=== PATIENT | female | born 1940 ===

== ENCOUNTER → 2024-04-25 10:24 | Outpatient (BNVA) | payer MEDICARE, SELFPAY | PROVIDERS: Family Provider Nurse Practitioner; PCP Nurse Practitioner Family; Visit Provider Nurse Practitioner Family | DX: I10 Essential (primary) hypertension (principal) | CPT/HCPCS: 80053; 80061; 84443; 85025 ==

== ENCOUNTER 2024-05-26 06:07 | Observation (INO) | payer MEDICARE, SELFPAY ==
[2024-05-26] VITALS (9 sets, daily range): BP systolic 119–196; BP diastolic 48–96; PULSE 61–84; RESP 16–20; TEMP 36.1–36.8; O2SAT 96–100; BMI 21.2
--- NOTE | 2024-05-26 06:16 | XRR_ITS ---
PROCEDURE INFORMATION: Exam: XR Chest Exam date and time: 05/26/2024 6:23 AM Age: 84 years old Clinical indication: Dyspnea; Additional info: Dyspnea/cough TECHNIQUE: Imaging protocol: Radiologic exam of the chest. Views: 1 view. COMPARISON: No prior chest imaging for comparison. FINDINGS: Lungs: No focal consolidation identified. Small granuloma versus pulmonary vessel on end superolateral to the right hilum. Pleural spaces: No significant pleural fluid. No pneumothorax detected. Heart/Mediastinum: Heart size within normal range. No pulmonary vascular congestion. Bones/joints: The bones appear osteopenic. XR/XR chest 1V portable [id number] IMPRESSION: No acute cardiopulmonary abnormality detected on AP portable chest radiograph.
--- NOTE | 2024-05-26 06:17 | CTR_ITS ---
PROCEDURE INFORMATION: Exam: CT Head Without Contrast Exam date and time: 05/26/2024 6:44 AM Age: 84 years old Clinical indication: Stroke-like symptoms; Altered mental status/memory loss; Additional info: AMS TECHNIQUE: Imaging protocol: Computed tomography of the head without contrast. Radiation optimization: All CT scans at this facility use at least one of these dose optimization techniques: automated exposure control; mA and/or kV adjustment per patient size (includes targeted exams where dose is matched to clinical indication); or iterative reconstruction. Other technique: STROKE PROTOCOL was implemented. COMPARISON: No relevant prior studies available. RADIATION DOSE METRICS: Total DLP (mGy-cm): 999.58 FINDINGS: Brain: No acute intracranial hemorrhage or mass effect. Mild age-related volume loss. Chronic appearing small-vessel ischemic changes are noted within both cerebral hemispheres. No subdural collections. Critical finding notification process initiated at 0654 hours CDT. Cerebral ventricles: Size within normal range for age. No midline shift. Paranasal sinuses: Visualized portions of paranasal sinuses are well aerated. Mastoid air cells: Visualized portions of mastoid sinuses are not opacified. Bones: Unremarkable. No acute fracture. Soft tissues: Other than as stated above, no obvious acute abnormality. CT/CT head wo con* [id number] IMPRESSION: No acute intracranial hemorrhage or mass effect. ASSESSMENT: ASPECTS ([place] Stroke Program Early CT Score) is 10.
--- NOTE | 2024-05-26 06:24 | ECG_ITS ---
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 Measurements Intervals [place] Rate: 74 P: 74 SC: 245 QRS: -36 QRSD: 86 T: 65 QT: 401 QTc: 446 Interpretive Statements SINUS RHYTHM WITH FIRST DEGREE AV BLOCK Possible right atrial enlargement LEFT AXIS DEVIATION [QRS AXIS < -30] LOW QRS VOLTAGE IN PRECORDIAL LEADS [QRS DEFLECTION < 1.0 mV IN CHEST LEADS] POSSIBLE RIGHT VENTRICULAR CONDUCTION DELAY [RSR (QR) IN V1/V2] No previous ECG available for comparison Electronically Signed On 05-26-2024 20:38:55 CDT by Real Villagran M.D. [id number]
--- NOTE | 2024-05-26 06:28 | ED_ITS ---
HPI - Altered Mental Status 2 General: Chief Complaint: Altered Mental Status Stated Complaint: confusion, disorientation Time Seen by Provider: 05/26/24 06:15 Source: patient and family Mode of arrival: ambulatory History of Present Illness: 84-year-old female presents to the [facility] room with a cousin who was nearby. This morning her cousin's son had gotten up to go to work and found the patient in their front yard. She lives about 12 miles away from them and had not seen her in approximately 1 week. She was confused and disoriented and said that her mother had told her to go over there and then had left. Both the patient and the family admit that the patient's mother several decades ago. Patient says her mother still lives with her. Family relates that the patient's daughter lives in [place]. She has had episodes in the past where she seemed significantly confused. Cousin at the bedside also states that they have noticed confusion and disorientation and seems to be getting progressively worse although never to this extent. Patient denies any recent illness. He denies any chest pain or discomfort. She has not recently had any fevers sweats or chills shortness of breath no dysuria urgency or frequency vomiting or diarrhea. There is a note from Dr. Gunn in the chart regarding visit for memory loss. MD complaint: altered mental status and confusion Onset (ago): unknown Consistency of symptoms: Getting Worse Associated symptoms: Reports auditory hallucinations and visual hallucinations Review of Systems 2 Const: Denies: fever(s) or chills Card: Denies: chest pain Resp: Denies: dyspnea GI: Denies: abdominal pain : Denies: dysuria, urinary frequency or urinary urgency Musc: Denies: neck pain or back pain Skin/Breast: Denies: rash Psych: Reports: visual hallucinations and auditory hallucinations PFSH ED 2 PFSH: Medical History Chronic kidney disease Hypertension Surgical History History of arthroscopic knee surgery 2004; bilateral meniscal repair Physical Exam 2 Const: COMMON NORMALS: no acute distress GENERAL APPEARANCE: cooperative and comfortable ORIENTATION/CONSCIOUSNESS: Yes awake HENMT: COMMON NORMALS: normocephalic, atraumatic and hearing grossly normal bilaterally HEAD & SCALP: normocephalic and atraumatic Resp: COMMON NORMALS: normal respiratory effort, No retractions, No use of accessory muscles and clear to auscultation bilaterally AUSCULTATION: clear to auscultation bilaterally Cardio: COMMON NORMALS: regular rate, regular rhythm and No murmurs present (Cardio) RATE: regular rate RHYTHM: regular rhythm GI: COMMON NORMALS: Soft to palpation and No hepatosplenomegaly present A USCULTATION: Yes normoactive bowel sounds PALPATION: Yes Soft to palpation, No Tenderness to palpation present (GI), No Guarding due to palpation present (GI) and Yes No hepatosplenomegaly present Extremity: COMMON NORMALS: normal to inspection, capillary refill normal, no clubbing, cyanosis or edema, no calf tenderness and no pedal edema Skin: COMMON NORMALS: no rashes or lesions noted GENERAL SKIN EXAM: no rashes or lesions noted Course 2 Vital Signs: Vital signs: Vital Signs Temperature 98 F 05/26/24 06:17 Pulse Rate 66 05/26/24 08:10 Respiratory Rate 18 05/26/24 06:17 Blood Pressure 169/96 05/26/24 08:10 Pulse Oximetry 100 05/26/24 08:10 Oxygen Delivery Me thod Room Air 05/26/24 08:10 MDM - Altered Mental Status Medical Decision Making Patient is found to have a scopolamine patch which was removed. The rest of her lab work looks normal she has no sign of stroke CT was negative I suspect it is a side effect of the scopolamine patch. She does have a mild cystitis but I do not think it is significant enough to cause the degree of confusion without causing leukocytosis or fever. Give her a dose of Rocephin in the emergency room will admit to the [facility] floor discussed with Dr. Martínez. Toxicology labs are pending to ensure there is no other underlying causes. Differential Diagnosis Likely altered mental status and delirium Medical Records I reviewed the patient's medical records. Lab Data I reviewed the patient's lab results. 05/26/24 06:23 05/26/24 06:23 Radiology Impressions Chest X-Ray 05/26/24 06:16 IMPRESSION: No acute cardiopulmonary abnormality detected on AP portable chest radiograph. Head CT 05/26/24 06:17 IMPRESSION: No acute intracranial hemorrhage or mass effect. ASSESSMENT: ASPECTS ([place] Stroke Program Early CT Score) is 10. ADDENDUM: 05/26/24 0700 Addendum: THIS REPORT CONTAINS FINDINGS THAT MAY BE CRITICAL TO PATIENT CARE. The findings were verbally communicated via telephone conference with DR. RM MERRILL at 6:56 AM CDT on 05/26/2024. The findings were acknowledged and understood. Laboratory Results WBC 8.79 10^3/uL (3.29-11.43) 05/26/24 06:23 RBC 4.85 10^6/uL (3.85-5.65) 05/26/24 06:23 Hgb 14.80 g/dL (11.27-16.99) 05/26/24 06:23 Hct 45.4 % (36-47) 05/26/24 06:23 MCV 93.6 fl (85-98) 05/26/24 06:23 MCH 30.5 pg (27-33) 05/26/24 06:23 MCHC 32.6 g/dL (30-55) 05/26/24 06:23 RDW 12.9 % (12.1-15.1) 05/26/24 06:23 Plt Count 307 10^3/cmm (157-399) 05/26/24 06:23 MPV 9.1 fL (7.4-10.4) 05/26/24 06:23 Neut % (Auto) 63.6 % 05/26/24 06:23 Lymph % (Auto) 26.4 % 05/26/24 06:23 [place] % (Auto) 6.1 % 05/26/24 06:23 Eos % (Auto) 2.3 % 05/26/24 06:23 Baso % (Auto) 1.3 % 05/26/24 06:23 Neut # (Auto) 5.59 10^3/uL (1.8-7.7) 05/26/24 06:23 Lymph # (Auto) 2.3 10^3/uL (0.8-4.8) 05/26/24 06:23 Trinity # (Auto) 0.5 10^3/uL (0.2-0.9) 05/26/24 06:23 Eos # (Auto) 0.2 10^3/uL (0.0-0.8) 05/26/24 06:23 Baso # (Auto) 0.1 10^3/uL (0.0-0.1) 05/26/24 06:23 Nucleated RBC % (auto) 0 % 05/26/24 06:23 Nucleated RBCs # 0.0 /100WBC 05/26/24 06:23 Sodium 139 mmol/L (136-145) 05/26/24 06:23 Potassium 3.9 mmol/L (3.5-5.1) 05/26/24 06:23 Chloride 100 mmol/L (98-107) 05/26/24 06:23 Carbon Dioxide 24 mmol/L (22-29) 05/26/24 06:23 Anion Gap 18.9 (5-19) 05/26/24 06:23 BUN 17 mg/dL (8-23) 05/26/24 06:23 Creatinine 1.1 mg/dL (0.5-0.9) H 05/26/24 06:23 GFR Calculation Not Reportable 05/26/24 06:23 Glucose 101 mg/dL (65-115) 05/26/24 06:23 Calculated Osmolality 290 mOsm/kg (285-295) 05/26/24 06:23 Lactic Acid 0.7 mmol/L (0.5-2.2) 05/26/24 06:23 Calcium 10.2 mg/dL (8.5-10.5) 05/26/24 06:23 Magnesium 2.3 mg/dL (1.7-2.3) 05/26/24 06:23 Total Bilirubin 0.5 mg/dL (0.15-1.2) 05/26/24 06:23 AST 25 U/L (0-32) 05/26/24 06:23 ALT 13 U/L (0-33) 05/26/24 06:23 Alkaline Phosphatase 105 U/L (35-105) 05/26/24 06:23 Ammonia 22 umol/L (11-51) 05/26/24 06:23 Creatine Kinase 169 U/L (26-192) 05/26/24 06:23 Troponin T Baseline 17 ng/L (0-10) H 05/26/24 06:23 Total Protein 7.7 g/dL (6.6-8.7) 05/26/24 06:23 Albumin 5.0 g/dL (3.5-5.2) 05/26/24 06:23 Globulin 2.7 g/dL (1.3-4.6) 05/26/24 06:23 Urine Color Yellow (Yellow) 05/26/24 07:30 Urine Appearance Slightly cloudy (CLEAR) 05/26/24 07:30 Urine pH 5 (5-7) 05/26/24 07:30 Ur Specific [place] 1.015 (1.005-1.030) 05/26/24 07:30 Urine Protein Neg (Negative) 05/26/24 07:30 Urine Glucose (UA) Norm (Normal) 05/26/24 07:30 Urine Ketones 1+ (Negative) H 05/26/24 07:30 Urine Blood Neg (Negative) 05/26/24 07:30 Urine Nitrate Negative (Negative) 05/26/24 07:30 Urine Bilirubin Neg (Negative) 05/26/24 07:30 Urine Urobilinogen Norm mg/dL (Negative) 05/26/24 07:30 Ur Leukocyte Esterase 2+ (Negative) H 05/26/24 07:30 Urine RBC 0-4 /hpf (0-2) H 05/26/24 07:30 Urine WBC 5-10 /hpf (0-5) H 05/26/24 07:30 Ur Squamous Epith Cells 0-4 /hpf (0-5) H 05/26/24 07:30 Amorphous Sediment Not Reportable 05/26/24 07:30 Urine Bacteria Trace /hpf (NONE) 05/26/24 07:30 Hyaline Casts 0-4 /lpf H 05/26/24 07:30 Urine Mucus 1+ /hpf 05/26/24 07:30 All radiology interpretation(s) finalized by discharge Discharge Plan Discharge Patient Disposition: Placed in Observation Clinical Impression: Altered mental status, Side effect of medication Coding Level of Care Code ED Public Defender for [place] NIH stroke score NIHSS Level Of Consciousness - 1a: 0 Level Of Consciousness Questions - 1b: Both Correct Level Of Consciousness Commands - 1c: Both Correct Best Gaze - 2: Normal Visual [place] - 3: No Visual Loss Facial Palsy - 4: Normal Motor Arm Right - 5: No Drift Motor Arm Left - 5: No Drift Motor Leg Right - 6: No Drift Motor Leg Left - 6: No Drift Limb Ataxia - 7: Absent Sensory - 8: Normal Best Language - 9: No Aphasia Dysarthia - 10: Normal Extinction And Inattention - 11: 0 Score Total Score: 0
[2024-05-26 06:29] LABS: Basophils # 0.1 10^3/uL (0.0-0.1); Basophils % 1.3 %; Eosinophils # 0.2 10^3/uL (0.0-0.8); Eosinophils % 2.3 %; Hematocrit 45.4 % (36-47); Lymphocytes # 2.3 10^3/uL (0.8-4.8); Lymphocytes % 26.4 %; Mean Corpuscular HGB Conc 32.6 g/dL (30-55); Mean Corpuscular Hemoglobin 30.5 pg (27-33); Mean Corpuscular Volume 93.6 fl (85-98); Mean Platelet Volume 9.1 fL (7.4-10.4); Monocytes # 0.5 10^3/uL (0.2-0.9); Monocytes % 6.1 %; Neutrophils # 5.59 10^3/uL (1.8-7.7); Neutrophils % 63.6 %; Nucleated Red Blood Cells % 0 %; Platelet Count 307 10^3/cmm (157-399); Red Blood Count 4.85 10^6/uL (3.85-5.65); Red Cell Distribution Width 12.9 % (12.1-15.1); White Blood Count 8.79 10^3/uL (3.29-11.43)
[2024-05-26 06:55] LABS: Troponin(5th) Baseline 17 ng/L (0-10)
[2024-05-26 06:57] LABS: Alanine Aminotransferase 13 U/L (0-33); Alkaline Phosphatase 105 U/L (35-105); Anion Gap 18.9 (5-19); Aspartate Amino Transferase 25 U/L (0-32); Blood Urea Nitrogen 17 mg/dL (8-23); Calcium 10.2 mg/dL (8.5-10.5); Carbon Dioxide 24 mmol/L (22-29); Chloride 100 mmol/L (98-107); Creatine Phosphokinase 169 U/L (26-192); Globulin 2.7 g/dL (1.3-4.6); Glucose 101 mg/dL (65-115); Lactic Sepsis W/Reflex 0.7 mmol/L (0.5-2.2); Magnesium 2.3 mg/dL (1.7-2.3); Osmolality Calculated 290 mOsm/kg (285-295); Potassium 3.9 mmol/L (3.5-5.1); Sodium 139 mmol/L (136-145); Total Bilirubin 0.5 mg/dL (0.15-1.2); Total Protein 7.7 g/dL (6.6-8.7)
[2024-05-26 07:09] LABS: Ammonia 22 umol/L (11-51)
--- NOTE | 2024-05-26 08:06 | PC.NURSE ---
DURING ROUNDING ON PATIENT, FAMILY NOTIFIED THIS NURSE THAT PATIENT HAD A SCOPOLAMINE PATCH BEHIND RIGHT EAR. THIS NURSE REMOVED PATCH. PHYSICIAN NOTIFIED.
--- NOTE | 2024-05-26 08:15 | PC.PHAR ---
PT HAD TRANSDERM SCOPE ON MED LIST-LAST FILL 04/25/24. WHEN ASKED ABOUT IT SHE SAID SHE DIDN'T HAVE IT.
[2024-05-26 08:25] LABS: Add Urine Microscopic? YES; Bilirubin Urine Neg (Negative); Blood Urine Neg (Negative); Glucose Urine UA Norm (Normal); Ketones Urine 1+ (Negative); Leukocyte Esterase Urine 2+ (Negative); Nitrate Urine Negative (Negative); Protein Urine Neg (Negative); Specific Gravity, Urine 1.015 (1.005-1.030); Urine Appearance Slightly Cloudy (CLEAR); Urine Color Yellow (Yellow); Urobilinogen Urine Norm (Negative); pH Urine 5 (5-7)
[2024-05-26 08:26] LABS: Bacteria Urine TRACE /hpf; Hyaline Casts Urine 0-4 /lpf; Mucus Urine 1+ /hpf; RBC Urine 0-4 /hpf (0-2); Squamous Epithelial Cell Urine 0-4 /hpf (0-5)
[2024-05-26 09:11] LABS: Troponin 5 2HR 16.26 ng/L (0-10)
--- NOTE | 2024-05-26 09:11 | ECG_ITS ---
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 Measurements Intervals [place] Rate: 68 P: 57 SD: 253 QRS: -40 QRSD: 78 T: 50 QT: 403 QTc: 429 Interpretive Statements SINUS RHYTHM WITH FIRST DEGREE AV BLOCK LEFT AXIS DEVIATION [QRS AXIS < -30] LOW QRS VOLTAGE IN PRECORDIAL LEADS [QRS DEFLECTION < 1.0 mV IN CHEST LEADS] POSSIBLE RIGHT VENTRICULAR CONDUCTION DELAY [RSR (QR) IN V1/V2] MODERATE ST DEPRESSION [0.05+ mV ST DEPRESSION] Compared to ECG 05/26/2024 06:24:04 ST (T wave) deviation now present Heavy baseline artifact, need to repeat Electronically Signed On 05-26-2024 20:52:50 CDT by Real Villagran M.D. [id number]
[2024-05-26 09:19] LABS: Acetaminophen < 5.0 ug/mL (10-30); Alcohol Level < 10 mg/dL (0-10); Salicylate < 0.3 mg/dL (3-10)
[2024-05-26 09:19] LABS: Troponin 5 2HR Delta -0.74 ABS# (0-10)
[2024-05-26 09:23] LABS: Amphetamines Screen Urine Negative (Negative); Barbiturates Screen Urine Negative (Negative); Benzodiazepines Screen Urine Negative (Negative); Cocaine Screen Urine Negative (Negative); Opiate Screen Urine Negative (Negative); PCP Screen Urine Negative (Negative); THC Screen Urine Negative (Negative)
--- NOTE | 2024-05-26 12:17 | ECG_ITS ---
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 Measurements Intervals [place] Rate: 70 P: 69 [place]: 239 QRS: -34 QRSD: 87 T: 64 QT: 401 QTc: 433 Interpretive Statements SINUS RHYTHM WITH FIRST DEGREE AV BLOCK LEFT AXIS DEVIATION [QRS AXIS < -30] LOW QRS VOLTAGE IN PRECORDIAL LEADS [QRS DEFLECTION < 1.0 mV IN CHEST LEADS] POSSIBLE RIGHT VENTRICULAR CONDUCTION DELAY [RSR (QR) IN V1/V2] INTERPRETATION BASED ON A DEFAULT AGE OF 40 YEARS Compared to ECG 05/26/2024 09:11:38 ST (T wave) deviation no longer present Electronically Signed On 05-27-2024 19:14:14 CDT by Real Villagran M.D. [id number]
[2024-05-26 12:49] LABS: Troponin 5 6HR 15.58 ng/L (0-10)
--- NOTE | 2024-05-26 12:55 | USR_ITS ---
PROCEDURE INFORMATION: Exam: US Duplex Bilateral Extracranial Arteries; Complete; Carotid Arteries Exam date and time: 05/26/2024 3:54 PM Age: 84 years old Clinical indication: Other: TIA TECHNIQUE: Imaging protocol: Real-time duplex ultrasound scan of the bilateral extracranial arteries combining pugh scale, color Doppler and spectral waveform analysis with image documentation. Complete exam. Exam focused on the carotid arteries. COMPARISON: CT head wo con* [id number] 05/26/2024 6:44 AM FINDINGS: Right common carotid artery: Unremarkable. No occlusion or stenosis. Waveforms are normal. Right internal carotid artery: Unremarkable. No occlusion or stenosis. Waveforms are normal. Right ICA/CCA ratio: 0.9 Right external carotid artery: No stenosis in the origin. Right vertebral artery: Unremarkable. Antegrade flow. Left common carotid artery: Unremarkable. No occlusion or stenosis. Waveforms are normal. Left internal carotid artery: Unremarkable. No occlusion or stenosis. Waveforms are normal. Left ICA/CCA ratio: 0.9 Left external carotid artery: No stenosis in the origin. Left vertebral artery: Unremarkable. Antegrade flow. US/CV carotid duplex BI* [id number] IMPRESSION: No carotid arterial stenosis. REFERENCES: SRU CRITERIA. The degree of internal carotid artery stenosis is based on criteria defined by the Society of Radiologists in Ultrasound (SRU). Normal is no stenosis. Mild is less than 50% stenosis. Moderate is 50-69% stenosis. Severe is greater than 69% stenosis to near occlusion. Near occlusion is a markedly narrowed lumen. Total occlusion is no detectable patent lumen.
[2024-05-26 12:56] LABS: Troponin 5 6HR Delta -1.42 ng/L (0-12)
--- NOTE | 2024-05-26 12:56 | USCV_ITS ---
Mariel Baer Age: 84 Gender: F : 1940 Exam Date: 05/26/2024 17:30 Ordering Phys: Anthony Martínez MD Technologist: CT Exam Location: [facility] [place] Indication: tia BP: 120 / 84 HR: 95 Rhythm: Sinus Technical Quality: Adequate MEASUREMENTS (Male / Female) Normal Values 2D ECHO LVOT Diameter 2.0 cm LV Ejection Fraction MOD 2C 66.1 % LV Ejection Fraction 2C AL 66.8 % LA Diameter 2.4 cm RA Systolic Volume 4C AL 40.5 ml RA Systolic Volume 4C MOD 39.6 ml LA Sys Volume AL 41.8 cm cubed LA Sys Volume Index AL 27.5 cm cubed/m squared Aorta at Sinotubular Diameter 2.2 cm M-MODE LA Ao Ratio MM 1.3 AV Cusp Separation MM 1.6 cm DOPPLER AV Peak Velocity 150.0 cm/s LVOT Peak Velocity 115.0 cm/s AV Area Cont Eq vti 2.3 cm squared AV Area Cont Eq pk 2.5 cm squared MV Peak Velocity 135.0 cm/s MV Area PHT 3.5 cm squared Mitral E to A Ratio 0.8 TV Peak Velocity 222.0 cm/s TR Peak Velocity 260.0 cm/s TR Peak Gradient 27.0 mmHg TV Peak E Velocity 59.0 cm/s Right Atrial Pressure 3.0 mmHg Pulmonary Artery Systolic Pressu 30.0 mmHg PV Peak Velocity 119.0 cm/s FINDINGS Left Ventricle Normal left ventricular size and systolic function, EF 67%.. Mild left ventricular hypertrophy. No regional wall motion abnormalities. Grade I/IV diastolic dysfunction (abnormal relaxation filling pattern), normal to mildly elevated filling pressures. Right Ventricle The right ventricle is normal in size and function. Right Atrium The right atrium is normal in size. Left Atrium The left atrium is normal in size. Mitral Valve Thickened mitral valve. Trace mitral valve regurgitation. Aortic Valve No gross abnormalities noted Tricuspid Valve Trace tricuspid valve regurgitation. Pulmonic Valve Trace pulmonary valve regurgitation. Pericardium No pericardial effusion. Aorta Normal aortic annulus size. IVC Inferior vena cava not visualized. CONCLUSIONS Normal left ventricular size and systolic function, EF 67%.. Mild left ventricular hypertrophy. No regional wall motion abnormalities. Grade I/IV diastolic dysfunction (abnormal relaxation filling pattern), normal to mildly elevated filling pressures. The right ventricle is normal in size and function. Thickened mitral valve. Trace mitral valve regurgitation. Trace of tricuspid and pulmonic regurgitation Estimated pulmonary artery peak systolic pressure 30 mmHg There is no pericardial effusion. There are no intracardiac masses. No similar previous studies are available for comparison Dr Real Villagran MD [facility] (Electronically Signed) Final Date: 26 May 2024 19:55 S
--- NOTE | 2024-05-26 12:57 | P.HP_ITS ---
Providers/Chief Complaint 2 Admitting Physician: Anthony Martínez MD Primary Care Provider: JABIER Horvath Chief Complaint: confusion, disorientation History of Present Illness Mariel enciso is a 84 year old female w no ith past medical history of hypertension, CKD with baseline creatinine of 1.1 presented to the ER with her family today because of episode of confusion. As per the patient who is AOx3 no with family at bedside she had traveled from [place] to [place] on Wednesday by air and uniquely she uses a scopolamine patch which she forgot to remove. As per the cousin who was at bedside they found her confused or walking in the front yard today. They believe that she had driven from her own house to their house earlier today morning and was standing in the front.. Patient does not remember driving in the morning. She remembers is standing in the front. And does not remember how she got to the house. As per her she was at her baseline does feel little tired last night. Has not had any similar episodes in the past. Currently denies any nausea, vomiting, headache, dizziness, abdominal pain, weakness in any of her arms or legs. Denies any recent fevers, difficulty in breathing. Review of Systems 2 General: Reports: 10 or more systems reviewed and unremarkable except in HPI and below Const: Denies: fever(s), chills, body aches, change in appetite, change in weight, malaise, night sweats, diaphoresis, change in sleep pattern, daytime sleepiness or snoring Eyes: Denies: change in vision, blurry vision, photophobia, eye discomfort or eye discharge ENMT: Denies: throat pain, enlarged tonsils, hoarseness, mouth pain, oral sores, dry mouth, tinnitus, nasal congestion or post nasal drip Card: Denies: chest pain, palpitations, irregular heart rhythm, edema, swelling of feet/ankles, lightheadedness, syncope, pre-syncope, dyspnea on exertion, orthopnea, leg pain with exertion or acrocyanosis Resp: Denies: dyspnea, productive cough, non-productive cough, wheezing, stridor, pain on inspiration, change in phlegm color, hemoptysis or chest congestion GI: Denies: abdominal pain, nausea, vomiting, hematemesis, coffee ground emesis, dysphagia, heartburn, diarrhea, constipation, bloating, GI cramping, change in bowel habits, pain on defecation, hematochezia or melena : Denies: flank pain, dysuria, urinary frequency, urinary urgency, urinary hesitancy, nocturia or hematuria Musc: Denies: neck pain, back pain, extremity pain, joint pain, joint swelling, joint redness, joint stiffness or limited range of motion Neuro: Denies: headache(s), numbness in extremities, weakness in extremities, sensory changes, lack of coordination, difficulty walking, frequent falls, dizziness, vertigo, confusion, Slurred speech present, difficulty communicating thoughts or seizure-like activity Psych: Denies: anxiety, depression, mood swings, panic attacks, hopelessness or irritability Endo: Denies: polyuria, polydipsia, tired all the time, cold intolerance, excessive sweating, flushing or heat intolerance Bill/Lymph: Denies: easy bruising or easy bleeding All/Imm: Denies: tongue swelling, facial swelling or acute wheezing Medications/Allergies Home Medications Medication Instructions Recorded Confirmed Last Taken Type lisinopril 5 mg tablet 5 mg PO DAILY 04/25/24 05/26/24 05/25/24 History Allergies Allergy/AdvReac Type Severity Reaction Status Date / Time erythromycin base Allergy ALGY-Hives Verified 05/26/24 07:23 Penicillins Allergy ALGY-Hives Verified 05/26/24 07:23 PFSH Acute 2 PFSH: Medical History Chronic kidney disease Hypertension Surgical History History of arthroscopic knee surgery 2004; bilateral meniscal repair Vitals/I&O/Wt Last Vital Signs Temp 98 F 05/26/24 06:17 Pulse 74 05/26/24 09:30 Resp 18 05/26/24 06:17 BP 165/73 05/26/24 09:30 Pulse Ox 100 05/26/24 09:30 O2 Del Method Room Air 05/26/24 11:15 Weight last 48 hrs Weight 52.617 kg Weight 52.617 kg Physical Exam 2 Narrative: General: No acute distress, AO x3, dehydrated, mildly anxious HEENT: PERRLA, pupils bilaterally equal and reactive Chest: Normal vesicular breath sounds, no added sounds, equal good air entry bilaterally CVS: S1-S2 regular, no murmurs, no tachycardia, no gallops, no rubs Abdomen: Soft, nontender, no organomegaly, bowel sounds present Neuro: No focal deficits, no facial deformity, AO x3, power 5/5 in all limbs Data 05/26/24 06:23 05/26/24 06:23 A&P Assessment and plan (1) Altered mental status: Most likely in setting of side effects from scopolamine patch which she had placed before getting on the flight on Wednesday and forgot to remove. Currently back to baseline. CT head negative on admission. CMP stable without any electrolyte abnormality or NIKOLE or liver dysfunction. Urine drug screen negative. No concerns for infection for now. Patient denies any dysuria. No leukocytosis or fever. Appreciate urinalysis. IV normal saline at 50 cc/h. Cannot rule out TIA. Will complete workup with echocardiogram and carotid Doppler. Check A1c. Appreciate recent lipid panel. Will start on atorvastatin 20 mg oral daily, aspirin 81 mg daily. (2) Side effect of medication: (3) Hypertension: Goal blood pressure less than 140/90 mmHg. Blood pressure slightly elevated. Takes left lisinopril 5 mg oral daily at home. For now start lisinopril at 10 mg daily. Will uptitrate as for goal blood pressures. Qualifiers: Hypertension type: primary hypertension Qualified Code(s): I10 - Essential (primary) hypertension (4) Chronic kidney disease: Qualifiers: Chronic kidney disease stage: stage 3 (moderate) Chronic kidney disease stage 3 subtype: stage 3a (GFR 45-59) Qualified Code(s): N18.31 - Chronic kidney disease, stage 3a Plan Full code Regular diet Protonix OPD prophylaxis Heparin 5000 every 12 hourly for DVT prophylaxis Discharge plan: Patient lives by herself. Given the circumstances of admission patient might benefit with close monitoring with possible home health on discharge at least for few weeks. Patient is agreeable. Case management alerted. Attestations 2 Medical Necessity Statement*: Admission under observation for management of altered mental status in setting of side effect from scopolamine patch while TIA is ruled out in a patient with baseline history of CKD and hypertension Diagnoses Altered mental status R41.82 Side effect of medication T88.7XXA Primary hypertension I10 Hypertension type: primary hypertension Stage 3a chronic kidney disease N18.31 Chronic kidney disease stage: stage 3 (moderate) Chronic kidney disease stage 3 subtype: stage 3a (GFR 45-59)
[2024-05-26] MEDS: sodium chloride 0.9% 1,000 ML 50 ML IV (13:25)
[2024-05-26] MEDS: pantoprazole DR 40 mg Tablet PO (13:26)
[2024-05-26] MEDS: lisinopril 10 mg Tablet PO (13:26)
[2024-05-26] MEDS: heparin 5,000 unit/mL INJ 1 mL 5000 UNIT SUBCUT (13:26)
[2024-05-26 13:40] LABS: Iron 60 ug/dL (37-145); Percent Saturation 21.3 % (20-50); Total Iron Binding Capacity 281 mcg/dl; Unsaturated Iron Binding 221 ug/dL (112-347)
[2024-05-26 13:44] LABS: Estmated Average Glucose 111; Hemoglobin A1C 5.5 % (4.0-6.0)
[2024-05-26 13:55] LABS: Procalcitonin 0.04 ng/mL (0-0.5); Vitamin B12 236 pg/mL (232-1245)
[2024-05-26] MEDS: haloperidol inj 5 mg/mL INJ 1 mL 2 MG IM (20:27)
--- NOTE | 2024-05-26 23:54 | PC.NURSE ---
Patient very confused coming into shift. Patient is able to tell me her name and . Patient does not answer other questions appropriately. Patient tells me she is going to get up and find her mom. This nurse educated that the patient's mom is not here and that here was in the hospital. Patient stated she was going to get up and do something then and started looking through her bag. A few minutes later, patient was found in the hallway with her jason shirt on with no pants. Patient was trying to leave but was stopped by the TRANSFER SPECIALIST. Patient stated she needed to leave and was looking for the way out because her mom and dad were downstairs. When patient was told there were no stairs to go down, patient stated then I can go through the garage. Patient was again educated the she was in the hospital. When patient was attempted to be redirected to her room, she started becoming mean and aggressive, trying to push past the nurse and TRANSFER SPECIALIST. Patient tried entering into another patient's room searching for the way out. Patient was finally taken to her room and was sitting in her chair with her cell phone trying to call the bridge expert and trying to find out if there was anyone from [facility] here in the building. Patient was educated that this nurse had some medication to be given for agitation. Patient stated, you aren't giving me anything and started pushing against this nurse, Danya Yeager RN, and CHELSEA Mustafa. Medication was safely administered.
[2024-05-27] MEDS: heparin 5,000 unit/mL INJ 1 mL 5000 UNIT SUBCUT ×2 (00:30→12:12)
[2024-05-27] MEDS: citalopram 20 mg Tablet PO (08:33)
[2024-05-27] MEDS: aspirin 81 mg EC Tablet PO (08:33)
[2024-05-27] MEDS: pantoprazole DR 40 mg Tablet PO (08:33)
[2024-05-27] MEDS: lisinopril 10 mg Tablet PO (08:33)
[2024-05-27 11:27] LABS: Basophils # 0.1 10^3/uL (0.0-0.1); Basophils % 0.9 %; Eosinophils % 0.5 %; Hematocrit 39.7 % (36-47); Lymphocytes # 1.3 10^3/uL (0.8-4.8); Lymphocytes % 16.5 %; Mean Corpuscular HGB Conc 33.2 g/dL (30-55); Mean Corpuscular Hemoglobin 31.1 pg (27-33); Mean Corpuscular Volume 93.6 fl (85-98); Mean Platelet Volume 9.6 fL (7.4-10.4); Monocytes # 0.4 10^3/uL (0.2-0.9); Monocytes % 4.7 %; Neutrophils # 6.01 10^3/uL (1.8-7.7); Neutrophils % 77.1 %; Nucleated Red Blood Cells % 0 %; Platelet Count 305 10^3/cmm (157-399); Red Blood Count 4.24 10^6/uL (3.85-5.65); Red Cell Distribution Width 12.8 % (12.1-15.1)
[2024-05-27 11:39] VITALS: BP 144/62; PULSE 78; RESP 16; TEMP 36.6; O2SAT 97
[2024-05-27 11:48] LABS: Chol HDL Ratio 3.14 mg/dL (0.0-4.40); Cholesterol 207 mg/dL (0-200); HDL Cholesterol 66 mg/dL (60-100); LDL Cholesterol Calculated 123 mg/dL (50-129); LDL HDL Ratio 1.86 RATIO (0.00-3.22); Triglycerides 91 mg/dL (0-150)
[2024-05-27 11:49] LABS: Alanine Aminotransferase 9 U/L (0-33); Alkaline Phosphatase 82 U/L (35-105); Anion Gap 13.4 (5-19); Aspartate Amino Transferase 22 U/L (0-32); Blood Urea Nitrogen 13 mg/dL (8-23); Calcium 9.3 mg/dL (8.5-10.5); Carbon Dioxide 22 mmol/L (22-29); Chloride 106 mmol/L (98-107); Globulin 2.8 g/dL (1.3-4.6); Glucose 106 mg/dL (65-115); Magnesium 2.1 mg/dL (1.7-2.3); Osmolality Calculated 285 mOsm/kg (285-295); Phosphorus 2.9 mg/dL (2.5-4.5); Potassium 4.4 mmol/L (3.5-5.1); Sodium 137 mmol/L (136-145); Total Bilirubin 0.4 mg/dL (0.15-1.2); Total Protein 6.8 g/dL (6.6-8.7)
[2024-05-27 12:03] LABS: Folate Level 17.9 ng/mL (4.8-37.3)
[2024-05-27] MEDS: sodium chloride 0.9% 1,000 ML 50 ML IV (12:13)
--- NOTE | 2024-05-27 14:16 | P.PN_ITS ---
Subjective 2 Subjective: Overnight patient had episode of agitation for which she required Haldol. Patient also had episode of diarrhea. On the morning seen sitting up in chair. Awake and alert. Denies any nausea vomiting, headache. He is back to her baseline mentation. She is alert to self, being in hospital, reason of hospitalization. Vitals/I&O/Wt Last Vital Signs Temp 97.8 F 05/27/24 11:39 Pulse 78 05/27/24 11:39 Resp 16 05/27/24 11:39 BP 144/62 05/27/24 11:39 Pulse Ox 97 05/27/24 11:39 O2 Del Method Room Air 05/27/24 11:39 05/26/24 05/27/24 05/27/24 22:59 06:59 14:59 Intake Total 632.5 / 872.5 240 / 240 Balance 632.5 / 872.5 240 / 240 Weight last 48 hrs Weight 40.086 kg Weight 52.617 kg Weight 52.617 kg Physical Exam 2 Narrative: General: No acute distress, AO x3, mildly anxious HEENT: PERRLA, pupils bilaterally equal and reactive Chest: Normal vesicular breath sounds, no added sounds, equal good air entry bilaterally CVS: S1-S2 regular, no murmurs, no tachycardia, no gallops, no rubs Abdomen: Soft, nontender, no organomegaly, bowel sounds present Neuro: No focal deficits, no facial deformity, AO x3, power 5/5 in all limbs Data 05/27/24 11:11 05/27/24 11:11 A&P Assessment and plan (1) Altered mental status: Most likely in setting of side effects from scopolamine patch which she had placed before getting on the flight on Wednesday and forgot to remove. Currently back to baseline. CT head negative on admission. CMP stable without any electrolyte abnormality or NIKOLE or liver dysfunction. Urine drug screen negative. No concerns for infection for now. Patient denies any dysuria. No leukocytosis or fever. Appreciate urinalysis. Most likely in setting of mild undiagnosed dementia leading to owning. Discussed in detail with patient's daughter over the phone. Patient did have episode of confusion back in December when she had traveled from here to [place]. At that time confusion had started late in the evening as well. At that time she was diagnosed of UTI. Carotid Doppler, echocardiogram results appreciated. Appreciate A1c, lipid panel. Continue with IV normal saline 50 cc/h. Start patient on Celexa 20 mg oral daily, donepezil 5 mg nightly. Haldol 1 mg IM every 4 as needed. Sitter at bedside. Continue with aspirin, statin. (2) Side effect of medication: (3) Hypertension: Goal blood pressure less than 140/90 mmHg. Blood pressure slightly elevated. Takes left lisinopril 5 mg oral daily at home. Continue with lisinopril at 10 mg daily. Will uptitrate as for goal blood pressures. Qualifiers: Hypertension type: primary hypertension Qualified Code(s): I10 - Essential (primary) hypertension (4) Chronic kidney disease: Qualifiers: Chronic kidney disease stage: stage 3 (moderate) Chronic kidney disease stage 3 subtype: stage 3a (GFR 45-59) Qualified Code(s): N18.31 - Chronic kidney disease, stage 3a Plan Full code Regular diet Protonix OPD prophylaxis Heparin 5000 every 12 hourly for DVT prophylaxis Discharge plan: Patient lives by herself. Most likely patient has undiagnosed dementia leading to sundowning. Care discussed in detail with patient's daughter Ms. Deloris eBcerra over the phone. We discussed going forward it would be best for patient to have 21/06 care. Daughter is planning to drive down to [place] by tomorrow and then possibly transition patient back to [place] with her. If patient remains at current mentation most likely can discharge home with patient's daughter. Attestations 2 Medical Necessity Statement*: Requires further hospitalization for management of altered mental status most likely in setting of undiagnosed dementia leading to sundowning while safe discharge planning is done Diagnoses Altered mental status R41.82 Side effect of medication T88.7XXA Primary hypertension I10 Hypertension type: primary hypertension Stage 3a chronic kidney disease N18.31 Chronic kidney disease stage: stage 3 (moderate) Chronic kidney disease stage 3 subtype: stage 3a (GFR 45-59)
[2024-05-27 16:00] VITALS: BP 176/68; PULSE 86; RESP 16; TEMP 36.4; O2SAT 93
[2024-05-27 17:35] LABS: C.Diff PCR (Lab) NEGATIVE (Negative)
[2024-05-27 19:37] VITALS: BP 186/68; PULSE 83; RESP 16; TEMP 36.8; O2SAT 97
[2024-05-27] MEDS: donepezil 5 MG Tablet PO (20:08)
[2024-05-27] MEDS: atorvastatin 40 mg Tablet 20 MG PO (20:08)
[2024-05-27] MEDS: hyDRALAzine 20 mg/mL INJ 1 mL 10 MG IVP (20:09)
[2024-05-27 23:58] VITALS: BP 170/64; PULSE 105; RESP 15; TEMP 37.1; O2SAT 96
[2024-05-28] MEDS: heparin 5,000 unit/mL INJ 1 mL 5000 UNIT SUBCUT
[2024-05-28 03:50] VITALS: BP 176/70; PULSE 75; RESP 16; TEMP 36.8; O2SAT 96
[2024-05-28 06:56] LABS: Basophils # 0.1 10^3/uL (0.0-0.1); Basophils % 1.1 %; Eosinophils # 0.1 10^3/uL (0.0-0.8); Eosinophils % 1.3 %; Hematocrit 39.3 % (36-47); Lymphocytes # 1.9 10^3/uL (0.8-4.8); Lymphocytes % 24.8 %; Mean Corpuscular HGB Conc 32.1 g/dL (30-55); Mean Corpuscular Hemoglobin 30.9 pg (27-33); Mean Corpuscular Volume 96.3 fl (85-98); Mean Platelet Volume 9.4 fL (7.4-10.4); Monocytes # 0.5 10^3/uL (0.2-0.9); Monocytes % 6.6 %; Neutrophils # 4.91 10^3/uL (1.8-7.7); Neutrophils % 65.9 %; Nucleated Red Blood Cells % 0 %; Platelet Count 276 10^3/cmm (157-399); Red Blood Count 4.08 10^6/uL (3.85-5.65); Red Cell Distribution Width 12.9 % (12.1-15.1); White Blood Count 7.45 10^3/uL (3.29-11.43)
[2024-05-28 07:04] VITALS: BP 188/66; PULSE 69; RESP 19; TEMP 36.8; O2SAT 95
[2024-05-28 07:13] LABS: Alanine Aminotransferase 8 U/L (0-33); Albumin Level 3.6 g/dL (3.5-5.2); Alkaline Phosphatase 75 U/L (35-105); Aspartate Amino Transferase 20 U/L (0-32); Blood Urea Nitrogen 11 mg/dL (8-23); Calcium 8.6 mg/dL (8.5-10.5); Carbon Dioxide 20 mmol/L (22-29); Chloride 105 mmol/L (98-107); Globulin 2.3 g/dL (1.3-4.6); Glucose 108 mg/dL (65-115); Osmolality Calculated 284 mOsm/kg (285-295); Sodium 137 mmol/L (136-145); Total Bilirubin 0.4 mg/dL (0.15-1.2); Total Protein 5.9 g/dL (6.6-8.7)
[2024-05-28] MEDS: sodium chloride 0.9% 1,000 ML 50 ML IV (08:37)
[2024-05-28] MEDS: lisinopril 10 mg Tablet PO (08:38)
[2024-05-28] MEDS: citalopram 20 mg Tablet PO (08:38)
[2024-05-28] MEDS: pantoprazole DR 40 mg Tablet PO (08:38)
[2024-05-28] MEDS: aspirin 81 mg EC Tablet PO (08:38)
[2024-05-28 10:00] VITALS: BMI 22.5
[2024-05-28 10:49] VITALS: BP 179/63; PULSE 71; RESP 18; TEMP 36.8; O2SAT 98
--- NOTE | 2024-05-28 11:55 | PC.NURSE ---
This nurse attempted to administer 1300 does of SubQ Heparin. Pt refused. I educated pt on what the medication was used for and explained to her that she has been receiving this medication while here and last time she received it was at 00:00. Pt continued to refuse stating I don't think I need that. Non-admitted medication in JAN.
--- NOTE | 2024-05-28 12:54 | P.DS_ITS ---
Discharge Providers Date of Admission: 05/26/24 09:40 Date of Discharge: May 28, 2024 Attending Provider at Admission: Anthony Martínez MD Attending Provider at Discharge: Anthony Martínez MD Primary Care Provider: JABIER Horvath Diagnoses at Discharge Discharge Diagnosis (1) Altered mental status: Status: Acute (2) Side effect of medication: Status: Acute (3) Hypertension: Status: Acute Qualifiers: Hypertension type: primary hypertension Qualified Code(s): I10 - Essential (primary) hypertension (4) Chronic kidney disease: Status: Chronic Qualifiers: Chronic kidney disease stage: stage 3 (moderate) Chronic kidney disease stage 3 subtype: stage 3a (GFR 45-59) Qualified Code(s): N18.31 - Chronic kidney disease, stage 3a (5) Dementia: Status: Acute Reason for Visit Reason for Visit: confusion, disorientation Hospital Course Hospital Course Mariel enciso is a 84 year old female w no ith past medical history of hypertension, CKD with baseline creatinine of 1.1 presented to the ER with her family today because of episode of confusion. As per the patient who is AOx3 no with family at bedside she had traveled from [place] to [place] on Wednesday by air and uniquely she uses a scopolamine patch which she forgot to remove. As per the cousin who was at bedside they found her confused or walking in the front yard today. They believe that she had driven from her own house to their house earlier today morning and was standing in the front.. Patient does not remember driving in the morning. She remembers is standing in the front. And does not remember how she got to the house. As per her she was at her baseline does feel little tired last night. Has not had any similar episodes in the past. Currently denies any nausea, vomiting, headache, dizziness, abdominal pain, weakness in any of her arms or legs. Denies any recent fevers, difficulty in breathing. Patient was admitted to the hospital further evaluation and management of altered mental status. At first it was thought to be in setting of scopolamine patch which remained on the patient for more than 24 hours. Patient was back to her baseline mentation after removal of scopolamine patch but she continued to h ave episodes of confusion and agitation in the evening. On further evaluation it is believed patient does have undiagnosed mild dementia leading her to have sundowning. She was started on oral donepezil and citalopram. On admission multiple etiologies including UTI, stroke, TIA, electrolyte abnormality or dehydration were ruled out. Patient safe discharge plan were discussed in detail with daughter over the phone who lives in [place]. Daughter is driving down to [place] and most likely will be transitioning her mother to [place] to live with her. During hospitalization she was also found to have elevated blood pressures for which her antihypertensives were adjusted. Going forward she is to take losartan 75 mg oral daily. Check her blood pressure daily at home and her blood pressure diary with goal blood pressure of less than 140/90 mmHg while higher than 100/60 mmHg. Physical Exam Narrative: General: No acute distress, AO x3, mildly anxious HEENT: PERRLA, pupils bilaterally equal and reactive Chest: Normal vesicular breath sounds, no added sounds, equal good air entry bilaterally CVS: S1-S2 regular, no murmurs, no tachycardia, no gallops, no rubs Abdomen: Soft, nontender, no organomegaly, bowel sounds present Neuro: No focal deficits, no facial deformity, AO x3, power 5/5 in all limbs Discharge Data Studies Completed and Pending Completed Studies During Hospitalization Category Date Time Status CT head wo con* [id number] Stat Cat Scan 05/26/24 06:17 Completed XR chest 1V portable [id number] Stat Exams 05/26/24 06:16 Completed CV. echo complete* [id number] Routine Ultrasound 05/26/24 12:56 Completed US carotid duplex bilateral [CV carotid duplex BI* Ultrasound 05/26/24 12:55 Completed [id number]] Routine Pending at discharge Category Date Time Status OVA and Parasites, Conc and PE Routine Lab 05/27/24 10:20 Ordered Salmonella / Shigella / Campy Routine Lab 05/27/24 10:20 Ordered Radiology Impressions Chest X-Ray 05/26/24 06:16 IMPRESSION: No acute cardiopulmonary abnormality detected on AP portable chest radiograph. Head CT 05/26/24 06:17 IMPRESSION: No acute intracranial hemorrhage or mass effect. ASSESSMENT: ASPECTS ([place] Stroke Program Early CT Score) is 10. ADDENDUM: 05/26/24 0700 Addendum: THIS REPORT CONTAINS FINDINGS THAT MAY BE CRITICAL TO PATIENT CARE. The findings were verbally communicated via telephone conference with DR. KAYODE BLANCO at 6:56 AM CDT on 05/26/2024. The findings were acknowledged and understood. Carotid Doppler Study 05/26/24 12:55 IMPRESSION: No carotid arterial stenosis. REFERENCES: SRU CRITERIA. The degree of internal carotid artery stenosis is based on criteria defined by the Society of Radiologists in Ultrasound (SRU). Normal is no stenosis. Mild is less than 50% stenosis. Moderate is 50-69% stenosis. Severe is greater than 69% stenosis to near occlusion. Near occlusion is a markedly narrowed lumen. Total occlusion is no detectable patent lumen. Laboratory Results WBC 7.45 10^3/uL (3.29-11.43) 05/28/24 06:34 RBC 4.08 10^6/uL (3.85-5.65) 05/28/24 06:34 Hgb 12.60 g/dL (11.27-16.99) 05/28/24 06:34 Hct 39.3 % (36-47) 05/28/24 06:34 MCV 96.3 fl (85-98) 05/28/24 06:34 MCH 30.9 pg (27-33) 05/28/24 06:34 MCHC 32.1 g/dL (30-55) 05/28/24 06:34 RDW 12.9 % (12.1-15.1) 05/28/24 06:34 Plt Count 276 10^3/cmm (157-399) 05/28/24 06:34 MPV 9.4 fL (7.4-10.4) 05/28/24 06:34 Neut % (Auto) 65.9 % 05/28/24 06:34 Lymph % (Auto) 24.8 % 05/28/24 06:34 [place] % (Auto) 6.6 % 05/28/24 06:34 Eos % (Auto) 1.3 % 05/28/24 06:34 Baso % (Auto) 1.1 % 05/28/24 06:34 Neut # (Auto) 4.91 10^3/uL (1.8-7.7) 05/28/24 06:34 Lymph # (Auto) 1.9 10^3/uL (0.8-4.8) 05/28/24 06:34 [place] # (Auto) 0.5 10^3/uL (0.2-0.9) 05/28/24 06:34 Eos # (Auto) 0.1 10^3/uL (0.0-0.8) 05/28/24 06:34 Baso # (Auto) 0.1 10^3/uL (0.0-0.1) 05/28/24 06:34 Nucleated RBC % (auto) 0 % 05/28/24 06:34 Nucleated RBCs # 0.0 /100WBC 05/28/24 06:34 Sodium 137 mmol/L (136-145) 05/28/24 06:34 Potassium 4.0 mmol/L (3.5-5.1) 05/28/24 06:34 Chloride 105 mmol/L (98-107) 05/28/24 06:34 Carbon Dioxide 20 mmol/L (22-29) L 05/28/24 06:34 Anion Gap 16.0 (5-19) 05/28/24 06:34 BUN 11 mg/dL (8-23) 05/28/24 06:34 Creatinine 0.9 mg/dL (0.5-0.9) 05/28/24 06:34 GFR Calculation Not Reportable 05/28/24 06:34 Glucose 108 mg/dL (65-115) 05/28/24 06:34 Estimat Average Glucose 111 05/26/24 12:26 Hemoglobin A1c 5.5 % (4.0-6.0) 05/26/24 12:26 Calculated Osmolality 284 mOsm/kg (285-295) L 05/28/24 06:34 Lactic Acid 0.7 mmol/L (0.5-2.2) 05/26/24 06:23 Calcium 8.6 mg/dL (8.5-10.5) 05/28/24 06:34 Phosphorus 2.9 mg/dL (2.5-4.5) 05/27/24 11:11 Magnesium 2.1 mg/dL (1.7-2.3) 05/27/24 11:11 Iron 60 ug/dL (37-145) 05/26/24 12:26 TIBC 281 mcg/dl 05/26/24 12:26 % Saturation 21.3 % (20-50) 05/26/24 12:26 Unsat Iron Binding 221 ug/dL (112-347) 05/26/24 12:26 Total Bilirubin 0.4 mg/dL (0.15-1.2) 05/28/24 06:34 AST 20 U/L (0-32) 05/28/24 06:34 ALT 8 U/L (0-33) 05/28/24 06:34 Alkaline Phosphatase 75 U/L (35-105) 05/28/24 06:34 Ammonia 22 umol/L (11-51) 05/26/24 06:23 Creatine Kinase 169 U/L (26-192) 05/26/24 06:23 Troponin T Baseline 17 ng/L (0-10) H 05/26/24 06:23 Troponin T 120 Minute 16.26 ng/L (0-10) H 05/26/24 08:30 Delta Troponin T -0.74 ABS# (0-10) L 05/26/24 08:30 Troponin T Hi Sens 6Hr 15.58 ng/L (0-10) H 05/26/24 12:26 Troponin T Hi Sens 6Hr Delta -1.42 ng/L (0-12) L 05/26/24 12:26 Total Protein 5.9 g/dL (6.6-8.7) L 05/28/24 06:34 Albumin 3.6 g/dL (3.5-5.2) 05/28/24 06:34 Globulin 2.3 g/dL (1.3-4.6) 05/28/24 06:34 Triglycerides 91 mg/dL (0-150) 05/27/24 11:11 Cholesterol 207 mg/dL (0-200) H 05/27/24 11:11 LDL Cholesterol, Calc 123 mg/dL (50-129) 05/27/24 11:11 HDL Cholesterol 66 mg/dL (60-100) 05/27/24 11:11 LDL/HDL Ratio 1.86 RATIO (0.00-3.22) 05/27/24 11:11 Cholesterol/HDL Ratio 3.14 mg/dL (0.0-4.40) 05/27/24 11:11 Vitamin B12 236 pg/mL (232-1245) 05/26/24 12:26 Folate 17.9 ng/mL (4.8-37.3) 05/27/24 11:11 Procalcitonin 0.04 ng/mL (0-0.5) 05/26/24 12:26 Urine Color Yellow (Yellow) 05/26/24 07:30 Urine Appearance Slightly cloudy (CLEAR) 05/26/24 07:30 Urine pH 5 (5-7) 05/26/24 07:30 Ur Specific [place] 1.015 (1.005-1.030) 05/26/24 07:30 Urine Protein Neg (Negative) 05/26/24 07:30 Urine Glucose (UA) Norm (Normal) 05/26/24 07:30 Urine Ketones 1+ (Negative) H 05/26/24 07:30 Urine Blood Neg (Negative) 05/26/24 07:30 Urine Nitrate Negative (Negative) 05/26/24 07:30 Urine Bilirubin Neg (Negative) 05/26/24 07:30 Urine Urobilinogen Norm mg/dL (Negative) 05/26/24 07:30 Ur Leukocyte Esterase 2+ (Negative) H 05/26/24 07:30 Urine RBC 0-4 /hpf (0-2) H 05/26/24 07:30 Urine WBC 5-10 /hpf (0-5) H 05/26/24 07:30 Ur Squamous Epith Cells 0-4 /hpf (0-5) H 05/26/24 07:30 Amorphous Sediment Not Reportable 05/26/24 07:30 Urine Bacteria Trace /hpf (NONE) 05/26/24 07:30 Hyaline Casts 0-4 /lpf H 05/26/24 07:30 Urine Mucus 1+ /hpf 05/26/24 07:30 Salicylates < 0.3 mg/dL (3-10) L 05/26/24 06:23 Urine Opiates Screen Negative ng/mL (Negative) 05/26/24 07:30 Acetaminophen < 5.0 ug/mL (10-30) L 05/26/24 06:23 Ur Barbiturates Screen Negative ng/mL (Negative) 05/26/24 07:30 Ur Phencyclidine Scrn Negative ng/mL (Negative) 05/26/24 07:30 Ur Amphetamines Screen Negative ng/mL (Negative) 05/26/24 07:30 U Benzodiazepines Scrn Negative ng/mL (Negative) 05/26/24 07:30 Urine Cocaine Screen Negative ng/mL (Negative) 05/26/24 07:30 U Marijuana (THC) Screen Negative ng/mL (Negative) 05/26/24 07:30 Ethyl Alcohol < 10 mg/dL (0-10) 05/26/24 06:23 C. difficile (PCR) Negative (Negative) 05/27/24 16:30 Vitals Last Vital Signs Temp 98.2 F 05/28/24 10:49 Pulse 71 05/28/24 10:49 Resp 18 05/28/24 10:49 BP 179/63 05/28/24 10:49 Pulse Ox 98 05/28/24 10:49 O2 Del Method Room Air 05/28/24 10:49 Discharge Plan Discharge Patient Disposition: Home Condition: Stable Prescriptions: New atorvastatin 40 mg Tablet 20 mg PO BEDTIME Qty: 30 0RF donepezil 5 mg Tablet 5 mg PO BEDTIME Qty: 30 0RF citalopram 20 mg Tablet 20 mg PO DAILY Qty: 30 0RF losartan 50 mg tablet 75 mg PO DAILY Qty: 60 0RF Discontinued lisinopril 5 mg tablet 5 mg PO DAILY Discharge Orders: Discharge Order (Routine); Ordered 05/28/24 Ordered By: Anthony Martínez Referrals: Kervin Marie FNP-C [Family Provider] - (We have notified your physician's clinic of the need for a follow-up appointment to be scheduled. If you have not heard from them within the next 2 business days, please call them directly. ) Bouchra Rogers FNP [Primary Care Provider] - (We have notified your physician's clinic of the need for a follow-up appointment to be scheduled. If you have not heard from them within the next 2 business days, please call them directly. ) Discharge Diet: Regular Discharge Activity: Resume usual activity and Increase activity as tolerated Patient Instructions: Losartan (By mouth), Donepezil (By mouth), Atorvastatin (By mouth) (Lipitor, Atorvaliq), Citalopram (By mouth), Altered Mental Status (ED), Opioid Safety Activity Restrictions/Additional Instructions: Check your blood pressure daily at home maintain a blood pressure diary. Goal blood pressure should be less than 140/90 mmHg. Your hypertension medication has been changed to losartan 75 mg oral daily. Discharge Attestations Time Spent in Discharge Care*: greater than 30 min Specific Discharge Activities: educating patient, educating and/or supporting family/caregiver, discussing with pcp/other providers, discussing with correctional counselor/case manager/social workers/dc planners, documenting/other paperwork and evaluating patient/reviewing data Status at Discharge: Cognitive status at discharge: mildly impaired cognition , Behavioral status at discharge: cooperative , Functional status at discharge: independent ambulation , Overall status at discharge: patient is back to baseline Quality Metrics Clinical Quality Measures [ No reported AMI, CVA or VTE this stay] Coding Level of Care Code 55718 Total time (in minutes) for Discharge: 60 Diagnoses Altered mental status R41.82 Side effect of medication T88.7XXA Primary hypertension I10 Hypertension type: primary hypertension Stage 3a chronic kidney disease N18.31 Chronic kidney disease stage: stage 3 (moderate) Chronic kidney disease stage 3 subtype: stage 3a (GFR 45-59) Dementia F03.90
[2024-05-28 15:33] VITALS: BP 167/69; PULSE 67; RESP 20; TEMP 36.7; O2SAT 98
== END 2024-05-28 17:59 | disposition home or self-care (01) ==
LOC: ER 09:00 → MEDSURG 16:05
PROVIDERS: Admitting Provider Student in an Organized Health Care Education/Training Program; Emergency Provider Family Medicine; Family Provider Nurse Practitioner; PCP Nurse Practitioner Family; Visit Provider Student in an Organized Health Care Education/Training Program
DX: R41.82 Altered mental status, unspecified (principal); T88.7XXA Unspecified adverse effect of drug or medicament, initial encounter; I12.9 Hypertensive chronic kidney disease with stage 1 through stage 4 chronic kidney disease, or unspecified chronic kidney disease; N18.31 Chronic kidney disease, stage 3a; F03.90 Unspecified dementia, unspecified severity, without behavioral disturbance, psychotic disturbance, mood disturbance, and anxiety; R19.7 Diarrhea, unspecified
CPT/HCPCS: 36415; 70450; 71045; 80053; 80061; 80306; 80307; 81001; 82140; 82274; 82550; 82607; 82746; 83036; 83540; 83550; 83605; 83630; 83735; 84100; 84145; 84484; 85025; 87493; 93005; 93306; 93880; 94664; 96361; 96372; 96374; 99285; G0378; J0360; J1630; J1644; J7030

== ENCOUNTER 2024-06-01 01:30 | Emergency (ER) | payer MEDICARE, SELFPAY ==
[2024-06-01 01:32] VITALS: BP 149/58; PULSE 73; RESP 16; TEMP 36.6; O2SAT 98; BMI 21.9
--- NOTE | 2024-06-01 01:32 | ECG_ITS ---
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 Measurements Intervals [place] Rate: 71 P: 65 [place]: 247 QRS: -14 QRSD: 82 T: 61 QT: 391 QTc: 428 Interpretive Statements SINUS RHYTHM WITH FIRST DEGREE AV BLOCK LOW QRS VOLTAGE IN PRECORDIAL LEADS [QRS DEFLECTION < 1.0 mV IN CHEST LEADS] POSSIBLE RIGHT VENTRICULAR CONDUCTION DELAY [RSR (QR) IN V1/V2] Compared to ECG 05/26/2024 15:44:44 Left-axis deviation no longer present Electronically Signed On 06-01-2024 10:59:54 CDT by Gurjit Barraza M.D. [email or web address]
--- NOTE | 2024-06-01 01:44 | XRR_ITS ---
PROCEDURE INFORMATION: Exam: XR Chest Exam date and time: 06/01/2024 1:53 AM Age: 84 years old Clinical indication: Other: Syncope TECHNIQUE: Imaging protocol: Radiologic exam of the chest. Views: 1 view. COMPARISON: CR (CHEST, ) 05/26/2024 6:23 AM FINDINGS: Lungs: Unremarkable. No consolidation. Pleural spaces: Unremarkable. No pleural effusion. No pneumothorax. Heart/Mediastinum: Heart size is normal. There is calcified plaque involving the aorta. Bones/joints: Unremarkable. XR/XR chest 1V portable [id number] IMPRESSION: No acute findings.
--- NOTE | 2024-06-01 01:44 | CTR_ITS ---
PROCEDURE INFORMATION: Exam: CT Head Without Contrast Exam date and time: 06/01/2024 1:59 AM Age: 84 years old Clinical indication: Syncope and collapse TECHNIQUE: Imaging protocol: Computed tomography of the head without contrast. Radiation optimization: All CT scans at this facility use at least one of these dose optimization techniques: automated exposure control; mA and/or kV adjustment per patient size (includes targeted exams where dose is matched to clinical indication); or iterative reconstruction. COMPARISON: CT head wo con* [id number] 05/26/2024 6:44 AM RADIATION DOSE METRICS: Total DLP (mGy-cm): 990.6 FINDINGS: Brain: There is prominence of the subarachnoid spaces compatible with atrophy. There are small-vessel ischemic change within the periventricular white matter. There is no evidence of an acute stroke or hemorrhage. No vasogenic edema, mass, or positive mass effect noted. Cerebral ventricles: No ventriculomegaly. Paranasal sinuses: Visualized sinuses are unremarkable. No fluid levels. Mastoid air cells: Visualized mastoid air cells are well aerated. Bones: Unremarkable. No acute fracture. Soft tissues: Unremarkable. CT/CT head wo con* [id number] IMPRESSION: 1. Atrophy with small-vessel ischemic change.
--- NOTE | 2024-06-01 01:45 | ED_ITS ---
HPI - Syncope 2 General: Chief Complaint: Syncope Stated Complaint: syncope Time Seen by Provider: 06/01/24 01:32 History of Present Illness: Patient presents to the ER by EMS with complaints of a syncopal episode, being nonresponsive, vomiting after a potential fall. Patient's daughter said she heard a thud in her mom's room and went in to check her out and she was unresponsive in between the bed and the wall. When she got next to her and tried to arouse her she vomited. But then she came to within a minute or 2 and is has been back to her normal self since then. Patient denies any pains at this time. She says she is not nauseous anymore. Daughter is at bedside and says she is almost back to her normal self patient was just recently discharged here from a recent stay in the hospital for altered mental status. Review of Systems 2 General: Reports: 10 or more systems reviewed and unremarkable except in HPI and below PFSH ED 2 PFSH: Medical History Insomnia Dementia History of bladder cancer Chronic kidney disease Hypertension Surgical History History of arthroscopic knee surgery 2004; bilateral meniscal repair Social History Smoking and tobacco/nicotine status: never used tobacco/nicotine Physical Exam 2 Const: COMMON NORMALS: no acute distress, average body habitus, no limitations, healthy appearing, alert and well nourished HENMT: COMMON NORMALS: normocephalic, atraumatic, hearing grossly normal bilaterally, external ears normal, Normal external nose present and moist oral mucous membranes HEAD & SCALP: normocephalic and atraumatic NOSE: Normal external nose present EXTERNAL EAR: Yes external ears normal Eye: COMMON NORMALS: Equal, round and reactive pupils present, EOMs intact bilaterally, conjunctivae normal and no scleral icterus CONJUNCTIVA: Yes conjunctivae normal PUPIL: Yes Equal, round and reactive pupils present Neck/C-Spine: COMMON NORMALS: full ROM, no lymphadenopathy, supple, no meningeal signs, no JVD and Thyroid normal THYROID: Thyroid normal Chest: COMMONS NORMALS: normal inspection of the chest and normal palpation of entire chest wall Resp: COMMON NORMALS: normal respiratory effort, No retractions, No use of accessory muscles and clear to auscultation bilaterally AUSCULTATION: clear to auscultation bilaterally Cardio: COMMON NORMALS: no JVD, regular rate, regular rhythm, S1 normal heart sound present, S2 normal heart sound present, No gallops present (Cardio), No clicks present (Cardio), No murmurs present (Cardio) and No rub (Cardio) R ATE: regular rate RHYTHM: regular rhythm HEART SOUNDS: S1 normal heart sound present and S2 normal heart sound present GI: COMMON NORMALS: Normal to inspection, nondistended, normoactive bowel sounds present, Soft to palpation, non-tender, No hepatosplenomegaly present and no masses PALPATION: Yes Soft to palpation and Yes No hepatosplenomegaly present Neuro: SENSORIUM/ORIENTATION: Yes alert MENINGEAL SIGNS: Yes no meningeal signs Course 2 Vital Signs: Vital signs: Vital Signs Temperature 97.8 F 06/01/24 01:32 Pulse Rate 64 06/01/24 04:32 Respiratory Rate 16 06/01/24 04:32 Blood Pressure 142/47 06/01/24 04:32 Pulse Oximetry 97 06/01/24 04:32 Oxygen Delivery Me thod Room Air 06/01/24 01:32 MDM - Syncope Medical Decision Making Patient had lab work done that included CBC CMP magnesium, troponin, CK chest x- ray, head CT, all of which was essentially benign. Patient was stable during her stay in ER. Patient be discharged home with diagnosis of syncope and fall, Medical Records I reviewed the patient's medical records. Lab Data I reviewed the patient's lab results. 06/01/24 02:28 06/01/24 02:28 Radiology Impressions Chest X-Ray 06/01/24 01:44 IMPRESSION: No acute findings. Head CT 06/01/24 01:44 IMPRESSION: 1. Atrophy with small-vessel ischemic change. Laboratory Results WBC 8.72 10^3/uL (3.29-11.43) 06/01/24 02:28 RBC 4.29 10^6/uL (3.85-5.65) 06/01/24 02:28 Hgb 13.20 g/dL (11.27-16.99) 06/01/24 02:28 Hct 40.6 % (36-47) 06/01/24 02:28 MCV 94.6 fl (85-98) 06/01/24 02: MCH 30.8 pg (27-33) 06/01/24 02: MCHC 32.5 g/dL (30-55) 06/01/24 02: RDW 13.0 % (12.1-15.1) 06/01/24 02:28 Plt Count 297 10^3/cmm (157-399) 06/01/24 02:28 MPV 9.2 fL (7.4-10.4) 06/01/24 02:28 Neut % (Auto) 72.7 % 06/01/24 02: Lymph % (Auto) 17.4 % 06/01/24 02: [place] % (Auto) 6.9 % 06/01/24 02: Eos % (Auto) 1.6 % 06/01/24 02: Baso % (Auto) 0.9 % 06/01/24 02: Neut # (Auto) 6.34 10^3/uL (1.8-7.7) 06/01/24 02: Lymph # (Auto) 1.5 10^3/uL (0.8-4.8) 06/01/24 02:28 [place] # (Auto) 0.6 10^3/uL (0.2-0.9) 06/01/24 02: Eos # (Auto) 0.1 10^3/uL (0.0-0.8) 06/01/24 02: Baso # (Auto) 0.1 10^3/uL (0.0-0.1) 06/01/24 02: Nucleated RBC % (auto) 0 % 06/01/24 02: Nucleated RBCs # 0.0 /100WBC 06/01/24 02:28 Sodium 138 mmol/L (136-145) 06/01/24 02:28 Potassium 4.7 mmol/L (3.5-5.1) 06/01/24 02: Chloride 100 mmol/L (98-107) 06/01/24 02: Carbon Dioxide 27 mmol/L (22-29) 06/01/24 02:28 Anion Gap 15.7 (5-19) 06/01/24 02:28 BUN 20 mg/dL (8-23) 06/01/24 02:28 Creatinine 1.1 mg/dL (0.5-0.9) H 06/01/24 02:28 GFR Calculation Not Reportable 06/01/24 02:28 Glucose 126 mg/dL (65-115) H 06/01/24 02:28 Calculated Osmolality 290 mOsm/kg (285-295) 06/01/24 02:28 Calcium 10.0 mg/dL (8.5-10.5) 06/01/24 02:28 Magnesium 2.2 mg/dL (1.7-2.3) 06/01/24 02:28 Total Bilirubin 0.3 mg/dL (0.15-1.2) 06/01/24 02:28 AST 32 U/L (0-32) 06/01/24 02:28 ALT 29 U/L (0-33) 06/01/24 02:28 Alkaline Phosphatase 98 U/L (35-105) 06/01/24 02:28 Creatine Kinase 103 U/L (26-192) 06/01/24 02:28 Troponin T Baseline 13 ng/L (0-10) H 06/01/24 02:28 Total Protein 6.9 g/dL (6.6-8.7) 06/01/24 02:28 Albumin 4.3 g/dL (3.5-5.2) 06/01/24 02:28 Globulin 2.6 g/dL (1.3-4.6) 06/01/24 02:28 All radiology interpretation(s) finalized by discharge Discharge Plan Discharge Patient Disposition: Home Clinical Impression: Syncope, Fall Condition: Stable Prescriptions: No Action atorvastatin 20 mg tablet 20 mg PO BEDTIME Qty: 90 1RF citalopram 20 mg tablet 20 mg PO DAILY Qty: 90 1RF donepezil 5 mg tablet 5 mg PO BEDTIME Qty: 90 1RF losartan 50 mg tablet 75 mg PO DAILY Qty: 135 1RF trazodone 50 mg tablet 50 mg PO .qhs Qty: 90 1RF Discharge Orders: Discharge ED (Routine); Ordered 06/01/24 Ordered By: Javier Zhang Referrals: Kervin Marie FNP-C [Family Provider] - 1 week Bouchra Rogers FNP [Primary Care Provider] - Patient Instructions: Syncope Activity Restrictions/Additional Instructions: Your evaluation in ER was unremarkable this included lab work, x-ray and CT, it is thought you had a syncopal episode and fell. Please follow-up with your family practice physician within the next 7 days for further evaluation and treatment as needed. Coding Level of Care Code ED Traffic Law Attorney for [place]
[2024-06-01 02:39] LABS: Basophils # 0.1 10^3/uL (0.0-0.1); Basophils % 0.9 %; Eosinophils # 0.1 10^3/uL (0.0-0.8); Eosinophils % 1.6 %; Hematocrit 40.6 % (36-47); Lymphocytes # 1.5 10^3/uL (0.8-4.8); Lymphocytes % 17.4 %; Mean Corpuscular HGB Conc 32.5 g/dL (30-55); Mean Corpuscular Hemoglobin 30.8 pg (27-33); Mean Corpuscular Volume 94.6 fl (85-98); Mean Platelet Volume 9.2 fL (7.4-10.4); Monocytes # 0.6 10^3/uL (0.2-0.9); Monocytes % 6.9 %; Neutrophils # 6.34 10^3/uL (1.8-7.7); Neutrophils % 72.7 %; Nucleated Red Blood Cells % 0 %; Platelet Count 297 10^3/cmm (157-399); Red Blood Count 4.29 10^6/uL (3.85-5.65); White Blood Count 8.72 10^3/uL (3.29-11.43)
[2024-06-01 03:01] LABS: Troponin(5th) Baseline 13 ng/L (0-10)
[2024-06-01 03:04] LABS: Alanine Aminotransferase 29 U/L (0-33); Albumin Level 4.3 g/dL (3.5-5.2); Alkaline Phosphatase 98 U/L (35-105); Anion Gap 15.7 (5-19); Aspartate Amino Transferase 32 U/L (0-32); Blood Urea Nitrogen 20 mg/dL (8-23); Carbon Dioxide 27 mmol/L (22-29); Chloride 100 mmol/L (98-107); Creatine Phosphokinase 103 U/L (26-192); Globulin 2.6 g/dL (1.3-4.6); Glucose 126 mg/dL (65-115); Magnesium 2.2 mg/dL (1.7-2.3); Osmolality Calculated 290 mOsm/kg (285-295); Potassium 4.7 mmol/L (3.5-5.1); Sodium 138 mmol/L (136-145); Total Bilirubin 0.3 mg/dL (0.15-1.2); Total Protein 6.9 g/dL (6.6-8.7)
[2024-06-01 03:07] LABS: Creatinine Clr Calc Pharmacy 31.1518
[2024-06-01 03:31] VITALS: BP 133/53; PULSE 71; RESP 16; O2SAT 97
[2024-06-01 04:32] VITALS: BP 142/47; PULSE 64; RESP 16; O2SAT 97
[2024-06-01 05:11] VITALS: BP 142/47; PULSE 64; RESP 16; TEMP 36.6; O2SAT 97
== END 2024-06-01 05:12 | disposition home or self-care (01) ==
PROVIDERS: Emergency Provider Emergency Medicine; Family Provider Nurse Practitioner; PCP Nurse Practitioner Family
DX: R55 Syncope and collapse (principal); F03.90 Unspecified dementia, unspecified severity, without behavioral disturbance, psychotic disturbance, mood disturbance, and anxiety; Z85.51 Personal history of malignant neoplasm of bladder; I12.9 Hypertensive chronic kidney disease with stage 1 through stage 4 chronic kidney disease, or unspecified chronic kidney disease; N18.9 Chronic kidney disease, unspecified
CPT/HCPCS: 36415; 70450; 71045; 80053; 82550; 83735; 84484; 85025; 93005; 99285